=== PATIENT | male | born 1965 | race Caucasian/White ===

== ENCOUNTER 2017-04-14 08:59 | Inpatient (IN) | payer SELFPAY ==
[~2017-04-14] VITALS: Ht 182.9 cm; Wt 86.0 kg
[~2017-04-14 08:59] MED LIST: ASPI1TAB7 PO; BACT2OIN TOP; BACT800T5 PO; CEPH500C3 PO
[2017-04-14 09:03] VITALS: BP 168/109; PULSE 126; RESP 16; TEMP 99; O2SAT 94
[2017-04-14] MEDS ORDERED: PIPERACIL-TAZO 4.5 GM PREMIX 100 ML IV STA (09:16)
[2017-04-14] MEDS ORDERED: VANCOMYCIN INJ 1,000 MG in SODIUM CHLOR 0.9% 250 ML INJ 250 ML IV STA (09:16)
[2017-04-14] MEDS ORDERED: SODIUM CHLOR 0.9% 1000 ML INJ 1,000 ML IV ONE (09:30)
[2017-04-14] MEDS ORDERED: FLUMAZENIL 0.5 MG/5 ML VIAL IV PUSH PRN (09:30)
[2017-04-14] MEDS ORDERED: LORazepam 2 MG TAB PO PRN (09:30)
[2017-04-14] MEDS ORDERED: LORazepam 2 MG/ML VIAL IV PUSH PRN ×4 (09:30)
[2017-04-14] MEDS ORDERED: LORazepam 1 MG TAB PO PRN (09:30)
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
[2017-04-14 10:00] VITALS: BP 145/85; PULSE 110; RESP 16; TEMP 98.8; O2SAT 95
[2017-04-14 10:07] LABS: TOTAL BILIRUBIN ADULT 0.6 MG/DL (0.2-1.0)
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
[2017-04-14 11:23] LABS: BASOPHIL % 0.3 % (0.0-2.0); EOSINOPHIL % 0.4 % (0.0-4.0); HEMATOCRIT 42.2 % (39.0-51.0); HEMO FLAGS DIFF FINAL; LYMPH % 8.8 % (9.0-44.0); LYMPHOCYTE # 0.8 TH/MM3 (1.0-4.8); MONO % 13.8 % (0.0-8.0); NEUT % 76.7 % (16.0-70.0); PLATELET COUNT 172 TH/MM3 (150-450); RED BLOOD COUNT 4.22 MIL/MM3 (4.50-5.90); RED CELL DISTRIBUTION WIDTH 15.5 % (11.6-17.2); WHITE BLOOD COUNT 9.1 TH/MM3 (4.0-11.0)
[2017-04-14 11:40] LABS: LACTIC ACID GHOST NOT REPORTABLE
[2017-04-14 11:50] VITALS: BP 129/79; PULSE 98; RESP 15; O2SAT 94
[2017-04-14 11:59] LABS: ANION GAP 10 MEQ/L (5-15); BICARBONATE 27.2 MEQ/L (21.0-32.0); BLOOD UREA NITROGEN 4 MG/DL (7-18); CHLORIDE 103 MEQ/L (98-107); GLOMERULAR FILTRATION RATE 112 ML/MIN (>89); SODIUM (NA) 140 MEQ/L (136-145)
[2017-04-14 12:03] LABS: ALKALINE PHOSPHATASE 95 U/L (45-117); ALT (GPT) 78 U/L (12-78); AST (GOT) 69 U/L (15-37); POTASSIUM 4.1 MEQ/L (3.5-5.1)
[2017-04-14] MEDS ORDERED: LACTULOSE SYRUP 20 GM/30 ML CUP PO PRN (12:30)
[2017-04-14] MEDS ORDERED: ACETAMINOPHEN/HYDROcodone 325 MG/7.5 MG TAB PO PRN (12:30)
[2017-04-14] MEDS ORDERED: SODIUM CHLORIDE 0.9% FLUSH 10 ML FLUSH IV FLUSH PRN (12:30)
[2017-04-14] MEDS ORDERED: ONDANSETRON HCL 4 MG/2 ML VIAL IVP PRN (12:30)
[2017-04-14] MEDS ORDERED: NALOXONE HCL 0.4 MG/ML AMP IV PRN (12:30)
[2017-04-14] MEDS ORDERED: SENNOSIDES 8.6 MG TAB PO PRN (12:30)
[2017-04-14] MEDS ORDERED: ACETAMINOPHEN/HYDROcodone 325 MG/5 MG TAB PO PRN (12:30)
[2017-04-14] MEDS ORDERED: MAGNESIUM HYDROXIDE SUSP 30 ML CUP PO PRN (12:30)
[2017-04-14] MEDS ORDERED: BISACODYL 10 MG SUPP RECTAL PRN (12:30)
[2017-04-14] MEDS ORDERED: Vancomycin Consult Pharmacy 1 EA OTHER SCH (12:45)
[2017-04-14] MEDS: LACTOBACILLUS ACIDOPHILUS TAB PO SCH ×2 (14:19→17:44)
[2017-04-14] MEDS: SODIUM CHLOR 0.9% 1000 ML INJ 1,000 ML IV SCH ×2 (14:19→17:44)
--- NOTE | 2017-04-14 14:32 | EKG ---
Date Performed: 04/14/2017 Time Performed: 09:51:18 PTAGE: 51 years EKG: SINUS TACHYCARDIA ABNORMAL RHYTHM ECG NO SIGNIFICANT CHANGE FROM PRIOR ELECTROCARDIOGRAM. PREVIOUS TRACING : 11/24/2014 17.39 DOCTOR: Claudy Bettencourt Interpretating Date/Time 04/14/2017 14:30:52
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
[2017-04-14 16:24] VITALS: BP 133/69; PULSE 110; RESP 20; TEMP 99.4; O2SAT 97
[2017-04-14 20:00] VITALS: BP 155/89; PULSE 102; RESP 18; TEMP 97.3; O2SAT 96
[2017-04-14] MEDS ORDERED: VANCOMYCIN INJ 1,000 MG in SODIUM CHLOR 0.9% 250 ML INJ 250 ML IV SCH (21:00)
[2017-04-14] MEDS: DOCUSATE SODIUM 50 MG/SENNA 8.6 MG TAB PO SCH ×2 (21:00→21:23)
[2017-04-14] MEDS: SODIUM CHLORIDE 0.9% FLUSH 10 ML FLUSH IV FLUSH SCH (21:23)
[2017-04-14] MEDS: VANCOMYCIN INJ 1,500 MG in SODIUM CHLORID 0.9% 500 ML INJ 500 ML IV SCH (21:23)
[2017-04-15] VITALS (7 sets, daily range): BP systolic 139–156; BP diastolic 75–99; PULSE 71–86; RESP 16–18; TEMP 98–99; O2SAT 95–98
[2017-04-15 07:38] LABS: AUTOMATED NEUTROPHIL # 4.8 TH/MM3 (1.8-7.7); BASOPHIL % 0.3 % (0.0-2.0); EOSINOPHIL % 0.7 % (0.0-4.0); HEMATOCRIT 42.8 % (39.0-51.0); HEMO FLAGS DIFF FINAL; LYMPH % 13.9 % (9.0-44.0); MEAN CELL VOLUME 101.3 FL (80.0-100.0); MEAN CORPUSCULAR HEMOGLOBIN 33.7 PG (27.0-34.0); MEAN CORPUSCULAR HGB CONC 33.3 % (32.0-36.0); MONO % 14.9 % (0.0-8.0); NEUT % 70.2 % (16.0-70.0); PLATELET COUNT 131 TH/MM3 (150-450); RED BLOOD COUNT 4.23 MIL/MM3 (4.50-5.90); RED CELL DISTRIBUTION WIDTH 14.8 % (11.6-17.2); WHITE BLOOD COUNT 6.9 TH/MM3 (4.0-11.0)
[2017-04-15 07:47] LABS: BICARBONATE 24.9 MEQ/L (21.0-32.0); POTASSIUM 3.9 MEQ/L (3.5-5.1)
[2017-04-15] MEDS: DOCUSATE SODIUM 50 MG/SENNA 8.6 MG TAB PO SCH ×2 (09:00→21:00)
[2017-04-15] MEDS: SODIUM CHLORIDE 0.9% FLUSH 10 ML FLUSH IV FLUSH SCH ×2 (09:00→21:48)
[2017-04-15] MEDS: VANCOMYCIN INJ 1,500 MG in SODIUM CHLORID 0.9% 500 ML INJ 500 ML IV SCH ×2 (09:18→21:48)
[2017-04-15] MEDS: FOLIC ACID 1 MG TAB PO SCH (09:23)
[2017-04-15] MEDS: LACTOBACILLUS ACIDOPHILUS TAB PO SCH ×3 (09:23→17:49)
[2017-04-15] MEDS: THIAMINE HCL 100 MG TAB PO SCH (09:23)
--- NOTE | 2017-04-15 09:49 | HHI.PR ---
Subjective Remarks Withdrawals have intensified today. Current treatments or not holding his withdrawal symptoms. He reports diaphoresis all night and feeling hot and cold and having global tremors. We discussed Librium adjustment. His wounds are improving with antibiotics. Objective Vital Signs Date Time Temp Pulse Resp B/P Pulse Ox O2 Delivery O2 Flow Rate FiO2 04/15/17 08:00 98.6 86 18 146/87 98 04/15/17 05:30 98.0 83 18 139/87 98 04/15/17 03:12 98.5 71 18 147/77 95 04/14/17 20:00 97.3 102 18 155/89 96 04/14/17 16:24 99.4 110 20 133/69 97 04/14/17 11:50 98 15 129/79 94 04/14/17 10:00 98.8 110 16 145/85 95 Result Diagram: 04/15/17 0646 04/15/17 0646 Objective Remarks GENERAL: NAD, A&Ox3 HEAD: Normocephalic. NECK: Supple, trachea midline. No lymphadenopathy. EYES: No scleral icterus. No injection or drainage. CARDIOVASCULAR: Regular rate and rhythm without murmurs, gallops, or rubs. RESPIRATORY: Breath sounds equal bilaterally. No accessory muscle use. GASTROINTESTINAL: Abdomen soft, non-tender, nondistended. MUSCULOSKELETAL: No cyanosis, or edema. SKIN: Warm and dry. NEURO: No focal neurological deficitis. Global tremors and diaphoresis. A/P Problem List: (1) Alcoholism ICD Code: F10.20 (2) Tachycardia ICD Code: R00.0 (3) Cellulitis of left ankle ICD Code: L03.116 (4) Cellulitis of left elbow ICD Code: L03.114 (5) Delirium tremens ICD Code: F10.231 Assessment and Plan Assessment and plan 51-year-old male admitted secondary to cellulitis and with alcohol intoxication. Currently in Delirium tremens. Librium increased. Given patient drinks 24-52 beers per day his withdraws expected to be intense. Left ankle cellulitis Left elbow cellulitis Improving Continue Vancomycin Probiotics Follow for improvement Alcoholism Delirium tremens Baseline 2452 beers per day Intense withdrawal expected CIWA protocol Librium increased to 25 mg every 6 hours Thiamine Folic acid He will likely need a prolonged stay if he will remain for DTs treatment High risk for AMA Follow for seizure activity Schizophrenia PTSD Follow clinically No current exacerbation seen Consider psych consult if symptoms start DVT prophylaxis SCDs given seizure risk and bleeding risk Abel Pollard MD Apr 15, 2017 09:49
[2017-04-15] MEDS ORDERED: MISCELLANEOUS NURSING INFORMATION ONE (10:00)
[2017-04-15] MEDS: chlordiazePOXIDE 25 MG CAP PO SCH ×2 (12:00→17:50)
[2017-04-15] MEDS: SODIUM CHLOR 0.9% 1000 ML INJ 1,000 ML IV SCH (21:49)
[2017-04-16] MEDS: chlordiazePOXIDE 25 MG CAP PO SCH ×4 (00:37→17:24)
[2017-04-16 00:40] VITALS: BP 135/89; PULSE 85; RESP 18; TEMP 97.5; O2SAT 97
[2017-04-16 05:00] VITALS: BP 130/84; PULSE 80; RESP 19; TEMP 97; O2SAT 98
[2017-04-16] MEDS: SODIUM CHLOR 0.9% 1000 ML INJ 1,000 ML IV SCH (06:00)
[2017-04-16 07:00] VITALS: PULSE 67
[2017-04-16 08:00] VITALS: BP 120/77; PULSE 76; RESP 18; TEMP 97.5; O2SAT 99
[2017-04-16] MEDS: THIAMINE HCL 100 MG TAB PO SCH (09:26)
[2017-04-16] MEDS: FOLIC ACID 1 MG TAB PO SCH (09:26)
[2017-04-16] MEDS: LACTOBACILLUS ACIDOPHILUS TAB PO SCH ×3 (09:26→17:24)
[2017-04-16] MEDS ORDERED: PHARMACY ORDERED LAB ONE (09:45)
[2017-04-16] MEDS: VANCOMYCIN INJ 1,500 MG in SODIUM CHLORID 0.9% 500 ML INJ 500 ML IV SCH (10:24)
--- NOTE | 2017-04-16 10:33 | HHI.PR ---
Subjective Remarks Delirium tremens under better control today with increase in Librium to 25 mg by mouth every 6 hours. Patient has no significant tremors of his right arm. Wounds continued to heal with IV antibiotics. Objective Vital Signs Date Time Temp Pulse Resp B/P Pulse Ox O2 Delivery O2 Flow Rate FiO2 04/16/17 08:00 97.5 76 18 120/77 99 04/16/17 05:00 97.0 80 19 130/84 98 04/16/17 00:40 97.5 85 18 135/89 97 04/15/17 20:30 98.4 83 18 147/99 97 04/15/17 16:00 98.8 86 18 148/75 96 04/15/17 12:00 99.0 80 16 156/97 95 I/O 04/15/17 04/15/17 04/15/17 04/16/17 04/16/17 04/16/17 07:00 15:00 23:00 07:00 15:00 23:00 Intake Total 580 ml 600 ml 900 ml Balance 580 ml 600 ml 900 ml Intake Oral 580 ml 600 ml 900 ml # Voids 9 4 1 2 # Bowel Movements 2 1 0 0 Result Diagram: 04/15/1746 04/15/17 0646 Objective Remarks GENERAL: NAD, A&Ox3 HEAD: Normocephalic. NECK: Supple, trachea midline. No lymphadenopathy. EYES: No scleral icterus. No injection or drainage. CARDIOVASCULAR: Regular rate and rhythm without murmurs, gallops, or rubs. RESPIRATORY: Breath sounds equal bilaterally. No accessory muscle use. GASTROINTESTINAL: Abdomen soft, non-tender, nondistended. MUSCULOSKELETAL: No cyanosis, or edema. SKIN: Warm and dry. NEURO: No focal neurological deficitis. Global tremors and diaphoresis. A/P Problem List: (1) Alcoholism ICD Code: F10.20 (2) Tachycardia ICD Code: R00.0 (3) Cellulitis of left ankle ICD Code: L03.116 (4) Cellulitis of left elbow ICD Code: L03.114 (5) Delirium tremens ICD Code: F10.231 Assessment and Plan Assessment and plan 51-year-old male admitted secondary to cellulitis and with alcohol intoxication. Currently in Delirium tremens with control and Librium. Consider Librium wean in 1-2 days. Follow-up procedures. Continue to monitor infected wounds and cellulitis, thus far is having good response with vancomycin. Left ankle cellulitis Left elbow cellulitis Improving Continue Vancomycin Probiotics Follow for improvement Alcoholism Delirium tremens Baseline 2452 beers per day Intense withdrawal expected CIWA protocol Librium increased to 25 mg every 6 hours Thiamine Folic acid He will likely need a prolonged stay if he will remain for DTs treatment High risk for AMA Follow for seizure activity Schizophrenia PTSD Follow clinically No current exacerbation seen Consider psych consult if symptoms start DVT prophylaxis SCDs given seizure risk and bleeding risk Abel Pollard MD Apr 16, 2017 10:33
[2017-04-16 12:00] VITALS: BP 153/80; PULSE 82; RESP 16; TEMP 98; O2SAT 96
[2017-04-16 16:00] VITALS: BP 128/79; PULSE 72; RESP 18; TEMP 97.7; O2SAT 98
[2017-04-16] MEDS: SODIUM CHLORIDE 0.9% FLUSH 10 ML FLUSH IV FLUSH SCH (21:00)
[2017-04-16] MEDS: DOCUSATE SODIUM 50 MG/SENNA 8.6 MG TAB PO SCH (21:00)
[2017-04-16] MEDS: VANCOMYCIN INJ 1,750 MG in SODIUM CHLORID 0.9% 500 ML INJ 500 ML IV SCH (22:04)
[2017-04-17] VITALS (7 sets, daily range): BP systolic 113–132; BP diastolic 65–89; PULSE 51–76; RESP 16–19; TEMP 95.6–98.3; O2SAT 96–98
[2017-04-17] MEDS: chlordiazePOXIDE 25 MG CAP PO SCH ×5 (00:25→22:42)
[2017-04-17] MEDS: SODIUM CHLOR 0.9% 1000 ML INJ 1,000 ML IV SCH ×2 (02:00→10:25)
[2017-04-17] MEDS: DOCUSATE SODIUM 50 MG/SENNA 8.6 MG TAB PO SCH ×2 (09:00→22:43)
[2017-04-17] MEDS: SODIUM CHLORIDE 0.9% FLUSH 10 ML FLUSH IV FLUSH SCH ×2 (09:00→23:57)
[2017-04-17] MEDS: FOLIC ACID 1 MG TAB PO SCH (10:26)
[2017-04-17] MEDS: LACTOBACILLUS ACIDOPHILUS TAB PO SCH ×3 (10:26→16:54)
[2017-04-17] MEDS: THIAMINE HCL 100 MG TAB PO SCH (10:26)
[2017-04-17] MEDS: VANCOMYCIN INJ 1,750 MG in SODIUM CHLORID 0.9% 500 ML INJ 500 ML IV SCH ×2 (10:35→22:42)
--- NOTE | 2017-04-17 15:09 | HHI.PR ---
Subjective Remarks Mr. Cruz is a 51-year-old male who is admitted secondary to cellulitis and shortly thereafter entered delirium tremens. Patient is still having tremors and abdominal cramps secondary to withdrawal. Wounds are improving slowly the signs of infection or not yet resolved. Blood cultures are positive for MRSA, sensitive to Bactrim. Objective Vital Signs Date Time Temp Pulse Resp B/P Pulse Ox O2 Delivery O2 Flow Rate FiO2 04/17/17 12:00 98.1 72 16 113/75 98 04/17/17 08:32 96.2 51 17 123/83 98 04/17/17 05:40 98.0 67 19 120/65 97 04/17/17 04:03 74 04/17/17 00:50 97.1 76 18 129/69 96 04/16/17 16:00 97.7 72 18 128/79 98 I/O 04/16/17 04/16/17 04/16/17 04/17/17 04/17/17 04/17/17 07:00 15:00 23:00 07:00 15:00 23:00 Intake Total 900 ml 240 ml 1050 ml Balance 900 ml 240 ml 1050 ml Intake Oral 900 ml 240 ml 1050 ml # Voids 2 3 2 # Bowel Movements 0 1 0 Result Diagram: 04/15/17 0646 04/15/17 0646 Objective Remarks GENERAL: NAD, A&Ox3 HEAD: Normocephalic. NECK: Supple, trachea midline. No lymphadenopathy. EYES: No scleral icterus. No injection or drainage. CARDIOVASCULAR: Regular rate and rhythm without murmurs, gallops, or rubs. RESPIRATORY: Breath sounds equal bilaterally. No accessory muscle use. GASTROINTESTINAL: Abdomen soft, non-tender, nondistended. MUSCULOSKELETAL: No cyanosis, or edema. SKIN: Warm and dry. NEURO: No focal neurological deficitis. Global tremors and diaphoresis. A/P Problem List: (1) Alcoholism ICD Code: F10.20 (2) Tachycardia ICD Code: R00.0 (3) Cellulitis of left ankle ICD Code: L03.116 (4) Cellulitis of left elbow ICD Code: L03.114 (5) Delirium tremens ICD Code: F10.231 Assessment and Plan Assessment and plan 51-year-old male admitted secondary to cellulitis and with alcohol intoxication. Currently in Delirium tremens with control and Librium. Global tremor and abdominal symptoms persist. Consider Librium wean in 1-2 days. Follow-up procedures. Continue vancomycin. At discharge patient may be a candidate to use Bactrim. Left ankle cellulitis Left elbow cellulitis Improving Continue Vancomycin Probiotics Follow for improvement Alcoholism Delirium tremens Baseline 2452 beers per day Intense withdrawal expected CIWA protocol Librium increased to 25 mg every 6 hours Thiamine Folic acid He will likely need a prolonged stay if he will remain for DTs treatment High risk for AMA Follow for seizure activity Schizophrenia PTSD Follow clinically No current exacerbation seen Consider psych consult if symptoms start DVT prophylaxis SCDs given seizure risk and bleeding risk Discharge planning Continue to treat delirium tremens with weaning from Librium prior to discharge. Abel Pollard MD Apr 17, 2017 15:09
[2017-04-18] VITALS (8 sets, daily range): BP systolic 115–145; BP diastolic 65–83; PULSE 60–82; RESP 17–18; TEMP 96–98; O2SAT 97–99
[2017-04-18] MEDS: chlordiazePOXIDE 25 MG CAP PO SCH ×4 (05:23→20:47)
[2017-04-18] MEDS: SODIUM CHLOR 0.9% 1000 ML INJ 1,000 ML IV SCH ×2 (05:28→07:24)
[2017-04-18] MEDS: FOLIC ACID 1 MG TAB PO SCH (08:28)
[2017-04-18] MEDS: SODIUM CHLORIDE 0.9% FLUSH 10 ML FLUSH IV FLUSH SCH ×2 (08:28→20:47)
[2017-04-18] MEDS: LACTOBACILLUS ACIDOPHILUS TAB PO SCH ×3 (08:28→17:19)
[2017-04-18] MEDS: DOCUSATE SODIUM 50 MG/SENNA 8.6 MG TAB PO SCH ×2 (08:28→20:47)
[2017-04-18] MEDS: THIAMINE HCL 100 MG TAB PO SCH (08:28)
[2017-04-18] MEDS ORDERED: PHARMACY ORDERED LAB ONE (09:45)
[2017-04-18] MEDS: VANCOMYCIN INJ 1,750 MG in SODIUM CHLORID 0.9% 500 ML INJ 500 ML IV SCH (10:34)
[2017-04-18 10:54] LABS: VANCOMYCIN TROUGH 15.8 MCG/ML (5.0-10.0)
--- NOTE | 2017-04-18 18:19 | HHI.PR ---
Subjective Remarks Patient denies cp/sob states tremors are better denies hallucinations denies fevers/chills Objective Vitals Vital Signs Date Time Temp Pulse Resp B/P Pulse Ox O2 Delivery O2 Flow Rate FiO2 04/18/17 16:13 96.8 79 18 123/77 99 04/18/17 11:56 98.0 76 18 115/75 97 04/18/17 07:58 96.0 61 17 118/65 98 04/18/17 05:00 73 04/18/17 04:51 97.5 60 18 134/80 97 04/18/17 00:44 96.5 75 18 130/80 98 04/17/17 20:24 98.3 76 16 125/73 98 I/O 04/17/17 04/17/17 04/17/17 04/18/17 04/18/17 04/18/17 07:00 15:00 23:00 07:00 15:00 23:00 Intake Total 1050 ml 1350 ml 480 ml Balance 1050 ml 1350 ml 480 ml Intake Oral 1050 ml 480 ml IV Total 1350 ml # Voids 2 2 4 # Bowel Movements 0 0 1 Result Diagram: 04/15/17 0646 04/18/17 1007 Imaging Last Impressions Head CT 04/14/17915 Signed Impressions: Service Date/Time: Friday, April 14, 2017 10:10 - CONCLUSION: 1. Mild stable periventricular white matter small vessel ischemic changes or areas of demyelination. 2. No acute infarct, acute hemorrhage, mass effect or extra axial fluid collections. Osvaldo Garcia MD Chest X-Ray 04/14/17915 Signed Impressions: Service Date/Time: Friday, April 14, 2017 09:20 - CONCLUSION: No acute disease. Jaswant Martines MD FACR Objective Remarks GENERAL: NAD, A&Ox3 HEAD: Normocephalic. NECK: Supple, trachea midline. No lymphadenopathy. EYES: No scleral icterus. No injection or drainage. CARDIOVASCULAR: Regular rate and rhythm without murmurs, gallops, or rubs. RESPIRATORY: Breath sounds equal bilaterally. No accessory muscle use. GASTROINTESTINAL: Abdomen soft, non-tender, nondistended. MUSCULOSKELETAL: No cyanosis, or edema. SKIN: Warm and dry. NEURO: No focal neurological deficitis. Global tremors and diaphoresis. Medications and IVs Current Medications Medications (Trade) Dose Ordered Sig/Bill Route Start Time Stop Time Status Last Admin (Romazicon Inj) 0.2 mg Q1M PRN IV PUSH 04/14/17 09:30 (Ativan) 1 mg Q4H PRN PO 04/14/17 09:30 04/14/17 13:01 (Ativan Inj) 1 mg Q4H PRN IV PUSH 04/14/17 09:30 (Ativan) 2 mg Q2H PRN PO 04/14/17 09:30 (Ativan Inj) 2 mg Q2H PRN IV PUSH 04/14/17 09:30 (Ativan Inj) 2 mg Q1H PRN IV PUSH 04/14/17 09:30 (Ativan Inj) 2 mg Q15M PRN IV PUSH 04/14/17 09:30 (NS Flush) 2 ml UNSCH PRN IV FLUSH 04/14/17 12:30 (NS Flush) 2 ml BID IV FLUSH 04/14/17 21:00 04/18/17 08:28 (Zofran Inj) 4 mg Q6H PRN IVP 04/14/17 12:30 ([place] 5-325 Mg) 1 tab Q4H PRN PO 04/14/17 12:30 ([place] 7.5-325 Mg) 1 tab Q4H PRN PO 04/14/17 12:30 04/17/17 10:35 (Narcan Inj) 0.4 mg UNSCH PRN IV 04/14/17 12:30 (Anabelle-Colace) 1 tab BID PO 04/14/17 21:00 04/18/17 08:28 (Milk Of Magnesia Liq) 30 ml Q12H PRN PO 04/14/17 12:30 (Senokot) 17.2 mg Q12H PRN PO 04/14/17 12:30 (Dulcolax Supp) 10 mg DAILY PRN RECTAL 04/14/17 12:30 (Lactulose Liq) 30 ml DAILY PRN PO 04/14/17 12:30 (Vitamin B1) 100 mg DAILY PO 04/15/17 09:00 04/18/17 08:28 Folic Acid 1 mg 1 mg DAILY PO 04/15/17 09:00 04/18/17 08:28 (Vancomycin Consult Pharmacy) 0 ml @ 0 mls/hr UNSCH OTHER 04/14/17 12:45 (Lactinex) 1 tab TID PO 04/14/17 14:00 04/18/17 17:19 (Librium) 25 mg Q12HR PO 04/18/17 21:00 (Cleocin) 450 mg Q6HR PO 04/19/17 00:00 A/P Problem List: (1) Cellulitis of left elbow ICD Code: L03.114 Status: Acute (2) Cellulitis of left ankle ICD Code: L03.116 Status: Acute (3) Tachycardia ICD Code: R00.0 Status: Acute (4) Alcoholism ICD Code: F10.20 Status: Acute (5) Lactic acidosis ICD Code: E87.2 Status: Acute Assessment and Plan 51-year-old male admitted secondary to cellulitis and with alcohol intoxication. Currently in Delirium tremens with control and Librium. Global tremor and abdominal symptoms persist. Consider Librium wean in 1-2 days. Follow-up procedures. Continue vancomycin. At discharge patient may be a candidate to use Bactrim. Left ankle cellulitis Left elbow cellulitis Improving on IV Vancomycin Probiotics Follow for improvement 04/18 DC IV Vancomycin, start oral clindamycin x 14 days Alcoholism Delirium tremens Baseline 2452 beers per day Intense withdrawal expected CIWA protocol On Librium to 25 mg every 6 hours Thiamine Folic acid High risk for AMA Follow for seizure activity 04/18 no seizures, mild tremors, will taper Librium and decrease dose to every 12 hours Schizophrenia PTSD Follow clinically No current exacerbation seen Seems stable DVT prophylaxis SCDs given seizure risk and bleeding risk Discharge Planning Possible Dc in am once tapered off from Librium. Jake Corrales MD Apr 18, 2017 18:19
[2017-04-19] VITALS: BP 150/92; PULSE 74; RESP 18; TEMP 95.5; O2SAT 99
[2017-04-19] MEDS: CLINDAMYCIN 150 MG CAP PO SCH ×3 (00:54→11:40)
[2017-04-19 04:00] VITALS: BP 143/81; PULSE 81; RESP 20; TEMP 96.7; O2SAT 99
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
[2017-04-19 08:00] VITALS: BP 117/75; PULSE 59; PULSE 66; RESP 18; TEMP 96.1; O2SAT 99
[2017-04-19] MEDS: DOCUSATE SODIUM 50 MG/SENNA 8.6 MG TAB PO SCH (08:57)
[2017-04-19] MEDS: FOLIC ACID 1 MG TAB PO SCH (08:58)
[2017-04-19] MEDS: THIAMINE HCL 100 MG TAB PO SCH (08:58)
[2017-04-19] MEDS: LACTOBACILLUS ACIDOPHILUS TAB PO SCH ×2 (08:58→11:40)
[2017-04-19] MEDS: SODIUM CHLORIDE 0.9% FLUSH 10 ML FLUSH IV FLUSH SCH (08:58)
[2017-04-19] MEDS: chlordiazePOXIDE 25 MG CAP PO SCH (08:58)
[2017-04-19 11:15] LABS: AUTOMATED NEUTROPHIL # 5.2 TH/MM3 (1.8-7.7); BASOPHIL % 0.6 % (0.0-2.0); EOSINOPHIL # 0.1 TH/MM3 (0-0.4); EOSINOPHIL % 1.8 % (0.0-4.0); HEMATOCRIT 40.5 % (39.0-51.0); HEMO FLAGS DIFF FINAL; LYMPH % 14.2 % (9.0-44.0); MEAN CELL VOLUME 100.9 FL (80.0-100.0); MEAN CORPUSCULAR HEMOGLOBIN 33.2 PG (27.0-34.0); MEAN CORPUSCULAR HGB CONC 32.9 % (32.0-36.0); MONO % 10.6 % (0.0-8.0); NEUT % 72.8 % (16.0-70.0); PLATELET COUNT 212 TH/MM3 (150-450); RED BLOOD COUNT 4.02 MIL/MM3 (4.50-5.90); WHITE BLOOD COUNT 7.2 TH/MM3 (4.0-11.0)
[2017-04-19 11:44] LABS: ALT (GPT) 90 U/L (12-78); ANION GAP 7 MEQ/L (5-15); AST (GOT) 52 U/L (15-37); BICARBONATE 27.8 MEQ/L (21.0-32.0); BLOOD UREA NITROGEN 6 MG/DL (7-18); CHLORIDE 107 MEQ/L (98-107); GLOMERULAR FILTRATION RATE 112 ML/MIN (>89); POTASSIUM 3.7 MEQ/L (3.5-5.1); SODIUM (NA) 142 MEQ/L (136-145)
[2017-04-19 11:46] LABS: ALKALINE PHOSPHATASE 87 U/L (45-117); TOTAL BILIRUBIN ADULT 0.5 MG/DL (0.2-1.0)
[2017-04-19 12:00] VITALS: BP 139/82; PULSE 76; RESP 17; TEMP 97; O2SAT 96
[2017-04-19] MEDS ORDERED: GNP100TA3 PO (14:36)
[2017-04-19] MEDS ORDERED: FOLI1TAB6 PO (14:36)
[2017-04-19] MEDS ORDERED: CLIN1CAP6 PO (14:36)
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
== END 2017-04-19 15:24 | disposition home or self-care (01) | DRG 603 ==
LOC: NEPD 08:59 → INTOOBSV 12:32 → NEDA 12:32 → N05B 14:47 → OBSVTOIN 04-18 16:12
PROVIDERS: ADMIT Internal Medicine; ATTEND Internal Medicine
DX: L03.114 Cellulitis of left upper limb (principal); F10.231 Alcohol dependence with withdrawal delirium; E87.2 Acidosis; F20.9 Schizophrenia, unspecified; L03.116 Cellulitis of left lower limb; B95.62 Methicillin resistant Staphylococcus aureus infection as the cause of diseases classified elsewhere; Z91.14 Patient's other noncompliance with medication regimen; F43.10 Post-traumatic stress disorder, unspecified; Y90.7 Blood alcohol level of 200-239 mg/100 ml; S40.812D Abrasion of left upper arm, subsequent encounter; S80.812D Abrasion, left lower leg, subsequent encounter
CPT/HCPCS: 70450; 71010; 76937; 80048; 80053; 80202; 80307; 82565; 83605; 85025; 86403; 87040; 87070; 87077; 87147; 87186; 87205; 93005; 96365; 96368; J2543; J3370; J7030; J7040; J7050

== ENCOUNTER 2017-08-27 10:34 | Emergency (ER) | payer SELFPAY ==
[~2017-08-27] VITALS: Ht 182.9 cm; Wt 77.0 kg
[~2017-08-27 10:34] MED LIST changes: -ASPI1TAB7 PO; -BACT2OIN TOP; -BACT800T5 PO; -CEPH500C3 PO; +CLIN300C5 PO; +FOLI1TAB6 PO; +THIA100 PO
[2017-08-27 10:36] VITALS: BP 207/122; PULSE 55; RESP 14; TEMP 98.6; O2SAT 98
[2017-08-27 11:51] VITALS: BP 197/95; PULSE 102; RESP 18; O2SAT 99
[2017-08-27] MEDS ORDERED: IBUPROFEN 800 MG TAB PO ONE (12:15)
[2017-08-27] MEDS ORDERED: cloNIDine HCL 0.1 MG TAB PO ONE (12:15)
--- NOTE | 2017-08-27 12:45 | RADRPT ---
EXAM DATE/TIME: 08/27/2017 12:15 [facility] COMPARISON: No previous studies available for comparison. INDICATIONS : Pain and swelling left hand, thumb. stuck with a palmetto leaf MEDICAL HISTORY : Hypertension. Cardiovascular disease TIA, SURGICAL HISTORY : None. ENCOUNTER: Initial ACUITY: 4 - 6 days PAIN SCORE: 10/10 LOCATION: Left Hand FINDINGS: Three view examination of the left hand demonstrates diffuse soft tissue swelling about the distal as pect of the bone. Subjacent osseous structures are intact. No radiopaque foreign body. Also noted is a well-corticated spur or osteochondroma off the anterior distal metadiaphysis of the first metacarpa l. CONCLUSION: 1. Diffuse soft tissue swelling about the distal thumb. 2. Osseous structures are all intact. No radiopaque foreign body. 3. Benign-appearing spur or osteochondroma off the distal anterior metadiaphysis of the first metacar pal. . Richard Charlton MD on August 27, 2017 at 12:36 Board Certified Radiologist. This report was verified electronically.
[2017-08-27 12:49] VITALS: BP 177/91; PULSE 96; RESP 18; O2SAT 98
[2017-08-27] MEDS ORDERED: CEPH-460 PO (12:57)
[2017-08-27] MEDS ORDERED: BACT800T5 PO (12:57)
--- NOTE | 2017-08-27 13:00 | PD ---
HPI . Left thumb pain and swelling Chief Complaint: Injury Time Seen by Provider: 12:04 Travel History International Travel<30 days: No Contact w/Intl Traveler<30days: No Traveled to known affect area: No History of Present Illness HPI 52-year-old male presents emergency department for evaluation of left thumb pain and swelling. 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 When he grabbed hold of the palm tree there were thorns that stabbed him. Patient has multiple small stab markings on his right forearm that appear to be healing well with no signs or symptoms of infection. Patient's left thumb has no visible stab lu but is ecchymotic, erythematous and edematous. Patient denies any fever or chills. Patient states it is difficult to move his left thumb secondary to the swelling. The left thumb is neurovascularly intact at this time. PFSH Past Medical History Arthritis: No Autoimmune Disease: No Blood Disorders: No Bipolar Disorder: Yes Anxiety: Yes Depression: Yes Heart Rhythm Problems: No Cancer: Yes (liver- chemo) Cardiovascular Problems: Yes High Cholesterol: No Chemotherapy: Yes Chest Pain: No Cerebrovascular Accident: Yes (TIA 2013) Diabetes: No Diminished Hearing: No Endocrine: No Gastrointestinal Disorders: No GERD: No Genitourinary: No Headaches: No Hiatal Hernia: No Heparin Induced Thrombocytopen: No Hypertension: Yes Immune Disorder: No Implanted Vascular Access Dvce: No Musculoskeletal: No Neurologic: No (Patient states he has experienced TIA's in the past) Psychiatric: Yes Reproductive: No Respiratory: No Migraines: No Radiation Therapy: Yes Schizophrenia: Yes Seizures: No Sickle Cell Disease: No Thyroid Disease: No Ulcer: No Past Surgical History Abdominal Surgery: No AICD: No Arteriovenous Shunt: No Cardiac Surgery: No Ear Surgery: No Endocrine Surgery: No Eye Surgery: No Genitourinary Surgery: No Gynecologic Surgery: No Insulin Pump: No Joint Replacement: No Neurologic Surgery: No Oral Surgery: No Pacemaker: No Thoracic Surgery: No Other Surgery: Yes (LEFT FOREARM) Social History Alcohol Use: Yes (2/3 18 packs a day) Tobacco Use: Yes (1/2 PACK) Substance Use: Yes (cocaine, lsd, marijaunna 15 years ago) Allergies-Medications (Allergen,Severity, Reaction): Coded Allergies: *MDRO Multi-Drug Resistant Organism (Verified Adverse Reaction, Unknown, ) MRSA Elbow Wound 04/14/2017 Reported Meds & Prescriptions Reported Meds & Active Scripts Active Keflex (Cephalexin) 500 Mg Cap 500 Mg PO Q6H 10 Days Bactrim DS (Sulfamethoxazole-Trimethoprim) 800-160 Mg Tab 1 Tab PO BID 10 Days Clindamycin (Clindamycin HCl) 300 Mg Cap 300 Mg PO TID Gnp Vitamin B-1 (Thiamine HCl) 100 Mg Tab 100 Mg PO DAILY Folic Acid 1 Mg Tablet 1 Mg PO DAILY Review of Systems Except as stated in HPI: all other systems reviewed are Neg Physical Exam Narrative GENERAL: Well-nourished, well-developed 52-year-old male patient in no acute distress. Nontoxic appearing. SKIN: Distal portion of left thumb ecchymotic, edematous and erythematous. Small area of fluctuation noted on the lateral aspect of the distal portion of the left thumb. HEAD: Normocephalic. Atraumatic. EYES: No scleral icterus. No injection or drainage. NECK: Supple, trachea midline. No JVD or lymphadenopathy. CARDIOVASCULAR: Regular rate and rhythm without murmurs, gallops, or rubs. RESPIRATORY: Breath sounds equal bilaterally. No accessory muscle use. GASTROINTESTINAL: Abdomen soft, non-tender, nondistended. MUSCULOSKELETAL: Limited range of motion to the thumb secondary to edema. No obvious deformity or cyanosis. BACK: Nontender without obvious deformity. No CVA tenderness. Data Data Last Documented VS Vital Signs Date Time Temp Pulse Resp B/P (MAP) Pulse Ox O2 Delivery O2 Flow Rate FiO2 08/27/17 12:49 96 18 177/91 (119) 98 Room Air 08/27/17 10:36 98.6 Orders Orders Hand, Complete (Oev1ibx) (08/27/17 12:08) Ice/Cold Pack (08/27/17 12:08) Clonidine (Catapres) (08/27/17 12:15) Ibuprofen (Motrin) (08/27/17 12:15) Ed Discharge Order (08/27/17 13:00) Wound Culture And Gram Stain (08/27/17 13:34) [facility] Medical Decision Making Medical Screen Exam Complete: Yes Emergency Medical Condition: Yes Differential Diagnosis Differential diagnoses include but not limited to left thumb fracture, cellulitis, abscess Narrative Course 52-year-old male patient presents emergency department for evaluation of left thumb edema, erythema and ecchymosis that occurred 4 days ago when he grabbed a hold of a palm tree to prevent himself from falling out and was stabbed by a thorn. Ibuprofen ordered for pain and swelling. Patient hypertensive upon arrival and given 0.1 mg of clonidine by mouth. X-ray of the left hand ordered. Ice applied to left hand. X-ray of the left hand shows 1. Diffuse soft tissue swelling about the distal thumb. 2. Osseous structures are all intact. No radiopaque foreign body. 3. Benign-appearing spur or osteochondroma off the distal anterior metadiaphysis of the first metacarpal. All area of fluctuation approximately 0.5cm in diameter. I&D performed. Please see my procedural narrative. Patient will be given a prescription for Bactrim and Keflex for the infection in his left thumb and discharged home with rice instructions for the left hand. Patient instructed to return to the emergency Department with any worsening condition but otherwise take ibuprofen or Tylenol as needed for pain or fevers. Blood pressure slowly trending downward. Patient given instructions to follow-up with [facility]. Patient states he will follow up with [place] . Procedures Procedure Narrative INCISION AND DRAINAGE OF ABSCESS: The area was prepped and was sterilely draped. Ethyl chloride spray was used to anesthetize the area properly. A number 11 scalpel was used to make a 0.25cm incision across the area of the abscess. The abscess was drained, complex loculations were broken down, and irrigated with normal saline. Cultures were obtained. Sterile dressing applied. Patient advised to keep dressing clean and dry. Diagnosis Primary Impression: Cellulitis of thumb, left Referrals: [facility] Primary Care Physician Patient Instructions: Cellulitis (ED), General Instructions Additional Instructions: Please return to emergency department if your symptoms return or worsen. Follow up with your primary care provider. Take medications as prescribed. Rice therapy to left hand, rest, ice, elevate with resting. Keep wound clean and dry. Med/Other Pt SpecificInfo: Prescription(s) given Scripts Cephalexin (Keflex) 500 Mg Cap 500 MG PO Q6H for Infection for 10 Days, #40 CAP 0 Refills Prov: Marylou Crespo 08/27/17 Sulfamethoxazole-Trimethoprim (Bactrim DS) 800-160 Mg Tab 1 TAB PO BID for Infection for 10 Days, #20 TAB 0 Refills Prov: Marylou Crespo 08/27/17 Disposition: 01 DISCHARGE HOME Condition: Stable Marylou Crespo Aug 27, 2017 13:00
== END 2017-08-27 13:34 | disposition home or self-care (01) ==
LOC: NEPD 10:34
DX: L03.012 Cellulitis of left finger (principal); I10 Essential (primary) hypertension; F17.200 Nicotine dependence, unspecified, uncomplicated; Z86.59 Personal history of other mental and behavioral disorders; Z85.05 Personal history of malignant neoplasm of liver; Z86.79 Personal history of other diseases of the circulatory system; X58.XXXA Exposure to other specified factors, initial encounter; Y93.H2 Activity, gardening and landscaping; Y99.0 Civilian activity done for income or pay
CPT/HCPCS: 10060; 73130

== ENCOUNTER 2017-08-28 11:58 | Inpatient (IN) | payer SELFPAY ==
[~2017-08-28] VITALS: Ht 182.9 cm; Wt 75.3 kg
[~2017-08-28 11:58] MED LIST changes: +BACT800T5 PO; +CEPH-460 PO
[2017-08-28] MEDS ORDERED: DEXAMETHASONE SOD PHOS 4 MG/ML VIAL IV ONE (12:00)
[2017-08-28] MEDS ORDERED: PROPOFOL 200 MG/20 ML AMP IV ONE (12:00)
[2017-08-28] MEDS ORDERED: LIDOCAINE HCL 1% PF 5 ML AMPULE OTHER ONE (12:00)
[2017-08-28] MEDS ORDERED: ONDANSETRON HCL 4 MG/2 ML VIAL IV PUSH ONE (12:00)
[2017-08-28 12:02] VITALS: BP 176/102; PULSE 116; RESP 20; TEMP 100.6; O2SAT 99
[2017-08-28 12:36] LABS: AUTOMATED NEUTROPHIL # 10.7 TH/MM3 (1.8-7.7); BASOPHIL % 0.2 % (0.0-2.0); HEMATOCRIT 43.7 % (39.0-51.0); HEMO FLAGS DIFF FINAL; LYMPH % 6.3 % (9.0-44.0); LYMPHOCYTE # 0.8 TH/MM3 (1.0-4.8); MEAN CELL VOLUME 94.4 FL (80.0-100.0); MEAN CORPUSCULAR HEMOGLOBIN 33.1 PG (27.0-34.0); NEUT % 82.5 % (16.0-70.0); PLATELET COUNT 206 TH/MM3 (150-450); RED BLOOD COUNT 4.63 MIL/MM3 (4.50-5.90); RED CELL DISTRIBUTION WIDTH 13.1 % (11.6-17.2); WHITE BLOOD COUNT 12.9 TH/MM3 (4.0-11.0)
[2017-08-28] MEDS ORDERED: VANCOMYCIN INJ 1,000 MG in SODIUM CHLOR 0.9% 250 ML INJ 250 ML IV ONE (12:45)
[2017-08-28] MEDS ORDERED: CLINDAMYCIN 600 MG PREMIX 50 ML IV ONE (12:45)
[2017-08-28] MEDS ORDERED: SODIUM CHLOR 0.9% 1000 ML INJ 1,000 ML IV ONE ×2 (12:45)
[2017-08-28] MEDS ORDERED: ACETAMINOPHEN 325 MG TAB PO ONE (12:45)
--- NOTE | 2017-08-28 12:47 | PD ---
HPI Chief Complaint: Skin Problem Time Seen by Provider: 12:27 Travel History International Travel<30 days: No Contact w/Intl Traveler<30days: No Traveled to known affect area: No History of Present Illness HPI The patient is a 52-year-old male who presents to the emergency department for increasing infection to the left thumb. The patient states that he received a puncture wound by a thorn from a palm tree last Monday. The patient was seen in the emergency department yesterday where he had an incision and drainage of the left thumb. The patient states there was drainage, states when it opened up the drainage went across the rim. He is unsure of a culture was obtained. He was prescribed antibiotics, however, did not get the antibiotics filled until this morning. The patient does complain of subjective fevers at home, intermittent chills, and increasing pain and swelling to the left thumb. He now notes her some redness spreading up the medial aspect of the left arm into the left axilla. He does have a history of alcohol use daily , 4-5 beers daily. He does smoke tobacco. He denies any known history of HIV or diabetes. He does not currently have a primary physician. Symptoms are moderate, exacerbated after a thorn stuck him in the left thumb, and there are no current alleviating factors. PFSH Past Medical History Arthritis: No Autoimmune Disease: No Blood Disorders: No Bipolar Disorder: Yes Anxiety: Yes Depression: Yes Heart Rhythm Problems: No Cancer: Yes (liver- chemo) Cardiovascular Problems: Yes High Cholesterol: No Chemotherapy: Yes Chest Pain: No Cerebrovascular Accident: Yes (TIA 2013) Diabetes: No Diminished Hearing: No Endocrine: No Gastrointestinal Disorders: No GERD: No Genitourinary: No Headaches: No Hiatal Hernia: No Heparin Induced Thrombocytopen: No Hypertension: Yes Immune Disorder: No Implanted Vascular Access Dvce: No Musculoskeletal: No Neurologic: No (Patient states he has experienced TIA's in the past) Psychiatric: Yes Reproductive: No Respiratory: No Migraines: No Radiation Therapy: Yes Schizophrenia: Yes Seizures: No Sickle Cell Disease: No Thyroid Disease: No Ulcer: No Past Surgical History Abdominal Surgery: No AICD: No Arteriovenous Shunt: No Cardiac Surgery: No Ear Surgery: No Endocrine Surgery: No Eye Surgery: No Genitourinary Surgery: No Gynecologic Surgery: No Insulin Pump: No Joint Replacement: No Neurologic Surgery: No Oral Surgery: No Pacemaker: No Thoracic Surgery: No Other Surgery: Yes (LEFT FOREARM) Social History Alcohol Use: Yes (2/3 18 packs a day) Tobacco Use: Yes (1/2 PACK) Substance Use: Yes (cocaine, lsd, marijaunna 15 years ago) Allergies-Medications (Allergen,Severity, Reaction): Coded Allergies: *MDRO Multi-Drug Resistant Organism (Verified Adverse Reaction, Unknown, ) MRSA Elbow Wound 04/14/2017 Reported Meds & Prescriptions Reported Meds & Active Scripts Active Keflex (Cephalexin) 500 Mg Cap 500 Mg PO Q6H 10 Days Bactrim DS (Sulfamethoxazole-Trimethoprim) 800-160 Mg Tab 1 Tab PO BID 10 Days Clindamycin (Clindamycin HCl) 300 Mg Cap 300 Mg PO TID Gnp Vitamin B-1 (Thiamine HCl) 100 Mg Tab 100 Mg PO DAILY Folic Acid 1 Mg Tablet 1 Mg PO DAILY Review of Systems Except as stated in HPI: all other systems reviewed are Neg General / Constitutional: Positive: Fever, Chills Cardiovascular: No: Chest Pain or Discomfort Respiratory: No: Shortness of Breath Gastrointestinal: No: Nausea, Vomiting, Abdominal Pain Musculoskeletal: Positive: Edema, Pain Skin: Positive Other (as noted in the history of present illness) Psychiatric: Positive: Substance Abuse (daily alcohol use) Physical Exam Narrative GENERAL: Awake, alert, pleasant 52-year-old male who appears his stated age and is in no acute respiratory distress. SKIN: Focused skin assessment warm/dry. Sunburn over the face. HEAD: Atraumatic. Normocephalic. EYES: Pupils equal and round. No scleral icterus. No injection or drainage. ENT: No nasal bleeding or discharge. Mucous membranes pink and moist. NECK: Trachea midline. No JVD. CARDIOVASCULAR: Regular, tachycardic with a heart rate of 115. RESPIRATORY: No accessory muscle use. Clear to auscultation. Breath sounds equal bilaterally. GASTROINTESTINAL: Abdomen soft, non-tender, nondistended. MUSCULOSKELETAL: The left thumb is swollen and edematous. Soft tissue swelling is noted with some discoloration and bluish to pale color skin over the radial and proximal aspect of the left thumb. There is lymphadenitis with a red streak going up the proximal aspect of the forearm over the volar side, over the medial aspect left forearm and into the left axilla. Positive left epitrochlear lymphadenopathy. NEUROLOGICAL: Awake and alert. No obvious cranial nerve deficits. Motor grossly within normal limits. Normal speech. Nonfocal. PSYCHIATRIC: Appropriate mood and affect; insight and judgment normal. Data Data Last Documented VS Vital Signs Date Time Temp Pulse Resp B/P (MAP) Pulse Ox O2 Delivery O2 Flow Rate FiO2 08/28/17 12:02 100.6 116 20 176/102 (126) 99 Orders Orders Sepsis Workup Initiated (08/28/17 ) Complete Blood Count With Diff (08/28/17 12:09) Comprehensive Metabolic Panel (08/28/17 12:09) Lactic Acid Sepsis Protocol (08/28/17 12:09) Blood Culture (08/28/17 12:09) Acetaminophen (Tylenol) (08/28/17 12:45) Sodium Chlor 0.9% 1000 Ml Inj (Ns 1000 M (08/28/17 12:45) Sodium Chlor 0.9% 1000 Ml Inj (Ns 1000 M (08/28/17 12:45) Clindamycin 600 Mg Premix (Cleocin 600 M (08/28/17 12:45) Vancomycin Inj (Vancomycin Inj) (08/28/17 12:45) Consult Hand Surgery (08/28/17 ) Consent (08/28/17 13:04) [employer] Request For Service (08/28/17 13:04) Admit To Inpatient (08/28/17 ) Vital Signs (Adult) Q4H (08/28/17 13:23) Activity Oob With Assistance (08/28/17 13:23) Electrical High Tension Tester / Telemetry .CONTINUOUS (08/28/17 13:23) Diet Npo (08/28/17 Lunch) Sodium Chlor 0.9% 1000 Ml Inj (Ns 1000 M (08/28/17 13:23) Sodium Chloride 0.9% Flush (Ns Flush) (08/28/17 13:30) Sodium Chloride 0.9% Flush (Ns Flush) (08/28/17 21:00) Basic Metabolic Panel (Bmp) (08/29/17 06:00) Complete Blood Count With Diff (08/29/17 06:00) Case Management Consult (08/28/17 13:23) Naloxone Inj (Narcan Inj) (08/28/17 13:30) Inpatient Certification (08/28/17 ) Vancomycin Consult Pharmacy (Vancomycin (08/28/17 13:30) Piperacil-Tazo 4.5 Gm Premix (Zosyn 4.5 (08/28/17 13:30) Flumazenil Inj (Romazicon Inj) (08/28/17 13:30) Lorazepam (Ativan) (08/28/17 13:30) Lorazepam Inj (Ativan Inj) (08/28/17 13:30) Lorazepam (Ativan) (08/28/17 13:30) Lorazepam Inj (Ativan Inj) (08/28/17 13:30) Lorazepam Inj (Ativan Inj) (08/28/17 13:30) Lorazepam Inj (Ativan Inj) (08/28/17 13:30) ^ Seizure Precautions (08/28/17 13:25) ^ Etoh Withdrawal Precautions (08/28/17 13:25) Chlordiazepoxide (Librium) (08/29/17 09:00) (Hub Use Only)Inp Phy Cons/Ref (08/28/17 ) Admit Order (Ed Use Only) (08/28/17 13:31) Labs Laboratory Tests Test 08/28/17 12:20 White Blood Count 12.9 TH/MM3 Red Blood Count 4.63 MIL/MM3 Hemoglobin 15.3 GM/DL Hematocrit 43.7 % Mean Corpuscular Volume 94.4 FL Mean Corpuscular Hemoglobin 33.1 PG Mean Corpuscular Hemoglobin Concent 35.0 % Red Cell Distribution Width 13.1 % Platelet Count 206 TH/MM3 Mean Platelet Volume 8.6 FL Neutrophils (%) (Auto) 82.5 % Lymphocytes (%) (Auto) 6.3 % Monocytes (%) (Auto) 11.0 % Eosinophils (%) (Auto) 0.0 % Basophils (%) (Auto) 0.2 % Neutrophils # (Auto) 10.7 TH/MM3 Lymphocytes # (Auto) 0.8 TH/MM3 Monocytes # (Auto) 1.4 TH/MM3 Eosinophils # (Auto) 0.0 TH/MM3 Basophils # (Auto) 0.0 TH/MM3 CBC Comment DIFF FINAL Differential Comment Blood Urea Nitrogen 6 MG/DL Creatinine 0.68 MG/DL Random Glucose 98 MG/DL Total Protein 8.0 GM/DL Albumin 3.5 GM/DL Calcium Level 8.9 MG/DL Alkaline Phosphatase 84 U/L Aspartate Amino Transf (AST/SGOT) 18 U/L Alanine Aminotransferase (ALT/SGPT) 21 U/L Total Bilirubin 0.9 MG/DL Sodium Level 131 MEQ/L Potassium Level 3.7 MEQ/L Chloride Level 97 MEQ/L Carbon Dioxide Level 23.9 MEQ/L Anion Gap 10 MEQ/L Estimat Glomerular Filtration Rate 122 ML/MIN Lactic Acid Level 1.1 mmol/L [facility] Medical Decision Making Medical Screen Exam Complete: Yes Emergency Medical Condition: Yes Medical Record Reviewed: Yes Interpretation(s) Laboratory Tests Test 08/28/17 12:20 White Blood Count 12.9 TH/MM3 Red Blood Count 4.63 MIL/MM3 Hemoglobin 15.3 GM/DL Hematocrit 43.7 % Mean Corpuscular Volume 94.4 FL Mean Corpuscular Hemoglobin 33.1 PG Mean Corpuscular Hemoglobin Concent 35.0 % Red Cell Distribution Width 13.1 % Platelet Count 206 TH/MM3 Mean Platelet Volume 8.6 FL Neutrophils (%) (Auto) 82.5 % Lymphocytes (%) (Auto) 6.3 % Monocytes (%) (Auto) 11.0 % Eosinophils (%) (Auto) 0.0 % Basophils (%) (Auto) 0.2 % Neutrophils # (Auto) 10.7 TH/MM3 Lymphocytes # (Auto) 0.8 TH/MM3 Monocytes # (Auto) 1.4 TH/MM3 Eosinophils # (Auto) 0.0 TH/MM3 Basophils # (Auto) 0.0 TH/MM3 CBC Comment DIFF FINAL Differential Comment Blood Urea Nitrogen 6 MG/DL Creatinine 0.68 MG/DL Random Glucose 98 MG/DL Total Protein 8.0 GM/DL Albumin 3.5 GM/DL Calcium Level 8.9 MG/DL Alkaline Phosphatase 84 U/L Aspartate Amino Transf (AST/SGOT) 18 U/L Alanine Aminotransferase (ALT/SGPT) 21 U/L Total Bilirubin 0.9 MG/DL Sodium Level 131 MEQ/L Potassium Level 3.7 MEQ/L Chloride Level 97 MEQ/L Carbon Dioxide Level 23.9 MEQ/L Anion Gap 10 MEQ/L Estimat Glomerular Filtration Rate 122 ML/MIN Lactic Acid Level 1.1 mmol/L Differential Diagnosis Differential diagnosis includes infected wound, cellulitis, abscess, lymphadenitis, lymphangitis, sepsis. Narrative Course IV was established, labs are drawn and sent, and the patient was placed on cardiac telemetry monitoring and continuous pulse oximetry monitoring. Blood cultures and lactic acid were sent to lab. The patient was administered clindamycin and vancomycin. I reviewed the EMR, he had an x-ray performed yesterday that was negative for foreign body. I discussed the patient with the on-call hand surgeon, Dr. Martinez, who will evaluate the patient in the emergency department. The patient will be kept nothing by mouth. The patient was evaluated by Dr. Dunn in the emergency department, he will take the patient to the operating room later today. The patient will be kept nothing by mouth. A call was placed to the on-call medical service for admission. Sepsis Criteria SIRS Criteria (2 or more): Heart rate over 90, WBC > 46573, < 4000 or > 10% bands Physician Communication Physician Communication A call was placed to the on-call medical service for admission. I discussed the patient with Dr. Castillo who agrees with admission. Diagnosis Primary Impression: Cellulitis of thumb, left Additional Impressions: Lymphangitis Sepsis Qualified Codes: A41.9 - Sepsis, unspecified organism Admitting Information Admitting Physician Requests: Admit Condition: Stable Nasir Thomas MD Aug 28, 2017 12:47
[2017-08-28 13:28] LABS: BLOOD UREA NITROGEN 6 MG/DL (7-18); GLOMERULAR FILTRATION RATE 122 ML/MIN (>89)
[2017-08-28 13:29] LABS: ALKALINE PHOSPHATASE 84 U/L (45-117); ALT (GPT) 21 U/L (12-78); ANION GAP 10 MEQ/L (5-15); AST (GOT) 18 U/L (15-37); BICARBONATE 23.9 MEQ/L (21.0-32.0); CHLORIDE 97 MEQ/L (98-107); POTASSIUM 3.7 MEQ/L (3.5-5.1); SODIUM (NA) 131 MEQ/L (136-145); TOTAL BILIRUBIN ADULT 0.9 MG/DL (0.2-1.0)
[2017-08-28] MEDS ORDERED: SODIUM CHLORIDE 0.9% FLUSH 10 ML FLUSH IV FLUSH PRN (13:30)
[2017-08-28] MEDS ORDERED: LORazepam 2 MG TAB PO PRN (13:30)
[2017-08-28] MEDS ORDERED: NALOXONE HCL 0.4 MG/ML AMP IV PUSH PRN (13:30)
[2017-08-28] MEDS ORDERED: LORazepam 1 MG TAB PO PRN (13:30)
[2017-08-28] MEDS ORDERED: Vancomycin Consult Pharmacy 1 EA OTHER SCH (13:30)
[2017-08-28] MEDS ORDERED: LORazepam 2 MG/ML VIAL IV PUSH PRN ×4 (13:30)
[2017-08-28] MEDS ORDERED: FLUMAZENIL 0.5 MG/5 ML VIAL IV PUSH PRN (13:30)
--- NOTE | 2017-08-28 13:53 | HHI.HP ---
HPI Service [facility] Primary Care Physician No Primary Care Physician Admission Diagnosis left thumb cellulitis with lymphangitis, sepsis Diagnoses: Travel History International Travel<30 Days: No Contact w/Intl Traveler <30 Da: No Traveled to Known Affected Are: No History of Present Illness last monday was cutting tree, and safety harness broke so tried to hang on the palm tree as he was desceding and the palm tree hit several places on his bilateral arm left thumb got the worse and swelling started slowly came yesterday to er, got i+D and got worse now woke up tracking up the left arm fever antibiotics not started because he only went to [facility] nurse today and was told to come to er since it was lanced here, has been draining not diabetic but a a smoker left UE have 2 plates inside from prior injury - 1986 not on any immunsuppressants denies any other symptoms nausea/ vomtign/ etc Review of Systems Except as stated in HPI: all other systems reviewed are Neg Past Family Social History Past Medical History minor stroke- 4 years ago chronic smoker Past Surgical History left arm sx with plates and screws Reported Medications no meds at home Allergies: Coded Allergies: *MDRO Multi-Drug Resistant Organism (Verified Adverse Reaction, Unknown, ) MRSA Elbow Wound 04/14/2017 Social History a pack a day >20yrs drinks etoh 4 beers a day no drugs ; about 20yrs ago, used to use everything- but NO IV drugs Physical Exam Vital Signs Vital Signs Date Time Temp Pulse Resp B/P (MAP) Pulse Ox O2 Delivery O2 Flow Rate FiO2 08/28/17 12:02 100.6 116 20 176/102 (126) 99 Physical Exam GENERAL: This is a well-nourished, well-developed patient, in no apparent distress. SKIN: No rashes, ecchymoses or lesions. Cool and dry. HEAD: Atraumatic. Normocephalic. No temporal or scalp tenderness. EYES: Pupils equal round and reactive. Extraocular motions intact. No scleral icterus. No injection or drainage. ENT: Nose without bleeding, purulent drainage or septal hematoma. Throat without erythema, tonsillar hypertrophy or exudate. Uvula midline. Airway patent. NECK: Trachea midline. No JVD or lymphadenopathy. Supple, nontender, no meningeal signs. CARDIOVASCULAR: Regular rate and rhythm without murmurs, gallops, or rubs. RESPIRATORY: Clear to auscultation. Breath sounds equal bilaterally. No wheezes , rales, or rhonchi. GASTROINTESTINAL: Abdomen soft, non-tender, nondistended. No hepato-splenomegaly , or palpable masses. No guarding. MUSCULOSKELETAL: Extremities without clubbing, cyanosis. left thumb with swelling, pus, limited range of motion. LEFT arm streaking up with erythema, palpable lymph nodes NEUROLOGICAL: Awake and alert. Cranial nerves II through XII intact. Motor and sensory grossly within normal limits. Five out of 5 muscle strength in all muscle groups. Normal speech. Laboratory Laboratory Tests Test 08/28/17 12:20 White Blood Count 12.9 Red Blood Count 4.63 Hemoglobin 15.3 Hematocrit 43.7 Mean Corpuscular Volume 94.4 Mean Corpuscular Hemoglobin 33.1 Mean Corpuscular Hemoglobin Concent 35.0 Red Cell Distribution Width 13.1 Platelet Count 206 Mean Platelet Volume 8.6 Neutrophils (%) (Auto) 82.5 Lymphocytes (%) (Auto) 6.3 Monocytes (%) (Auto) 11.0 Eosinophils (%) (Auto) 0.0 Basophils (%) (Auto) 0.2 Neutrophils # (Auto) 10.7 Lymphocytes # (Auto) 0.8 Monocytes # (Auto) 1.4 Eosinophils # (Auto) 0.0 Basophils # (Auto) 0.0 CBC Comment DIFF FINAL Differential Comment Blood Urea Nitrogen 6 Creatinine 0.68 Random Glucose 98 Total Protein 8.0 Albumin 3.5 Calcium Level 8.9 Alkaline Phosphatase 84 Aspartate Amino Transf (AST/SGOT) 18 Alanine Aminotransferase (ALT/SGPT) 21 Total Bilirubin 0.9 Sodium Level 131 Potassium Level 3.7 Chloride Level 97 Carbon Dioxide Level 23.9 Anion Gap 10 Estimat Glomerular Filtration Rate 122 Lactic Acid Level 1.1 Date/Time Source Procedure Growth Status 08/28/17 12:20 Blood Peripheral Aerobic Blood Culture Pending Received 08/28/17 12:20 Blood Peripheral Anaerobic Blood Culture Pending Received Result Diagram: 08/28/17 1220 08/28/17 1220 Caprini VTE Risk Assessment Caprini Risk Assessment Model Point Value = 1 Point Value = 2 Point Value = 3 Point Value = 5 Age 41-60 Minor surgery BMI > 25 kg/m2 Swollen legs Varicose veins or History of unexplained or recurrent spontaneous Oral contraceptives or hormone replacement Sepsis (< 1 month) Serious lung disease, including pneumonia (< 1 month) Abnormal pulmonary function Acute myocardial infarction Congestive heart failure (< 1 month) History of inflammatory bowel disease Medical patient at bed rest Age 61-74 Arthroscopic surgery Major open surgery (> 45 min) Laparoscopic surgery (> 45 min) Malignancy Confined to bed (> 72 hours) Immobilizing plaster cast Central venous access Age >= 75 History of VTE Family history of VTE Factor V Leiden Prothrombin [id number] Lupus anticoagulant Anticardiolipin antibodies Elevated serum homocysteine Heparin-induced thrombocytopenia Other congenital or acquired thrombophilia Stroke (< 1 month) Elective arthroplasty Hip, pelvis, or leg fracture Acute spinal cord injury (< 1 month) Prophylaxis Regimen Total Risk Factor Score Risk Level Prophylaxis Regimen 0-1 Low Early ambulation 2 Moderate Order ONE of the following: *Sequential Compression Device (SCD) *Heparin 5000 units SQ BID 3-4 Higher Order ONE of the following medications: *Heparin 5000 units SQ TID *Enoxaparin/Lovenox 40 mg SQ daily (WT < 150 kg, CrCl > 30 mL/min) *Enoxaparin/Lovenox 30 mg SQ daily (WT < 150 kg, CrCl > 10-29 mL/min) *Enoxaparin/Lovenox 30 mg SQ BID (WT < 150 kg, CrCl > 30 mL/min) AND/OR *Sequential Compression Device (SCD) 5 or more Highest Order ONE of the following medications: *Heparin 5000 units SQ TID (Preferred with Epidurals) *Enoxaparin/Lovenox 40 mg SQ daily (WT < 150 kg, CrCl > 30 mL/min) *Enoxaparin/Lovenox 30 mg SQ daily (WT < 150 kg, CrCl > 10-29 mL/min) *Enoxaparin/Lovenox 30 mg SQ BID (WT < 150 kg, CrCl > 30 mL/min) AND *Sequential Compression Device (SCD) Physician Certification Order for Inpatient Services The services are ordered in accordance with Medicare regulations or non- Medicare payer requirements, as applicable. In the case of services not specified as inpatient-only, they are appropriately provided as inpatient services in accordance with the 2-midnight benchmark. days is the estimated time the patient will need to remain in the hospital, assuming treatment plan goals are met and no additional complications. Aditi Castillo MD Aug 28, 2017 13:53
[2017-08-28] MEDS ORDERED: SODIUM CHLOR 0.9% 1000 ML INJ 1,000 ML IV SCH (14:00)
--- NOTE | 2017-08-28 14:08 | MB ---
cc: PHANI ELENA III, M.D. DATE OF CONSULTATION: 08/28/2017 HISTORY OF PRESENT ILLNESS The patient is a 52-year-old male who has an infection in his left thumb. Five days ago he fell from a tree while at work and got puncture with thorns from a palm tree in his left thumb and right forearm. He was seen in the emergency room yesterday where he had a very limited incision and drainage in the thumb and returned today. He states that he has redness and swelling and pain up his entire arm. He did not get the antibiotics filled until this morning. PAST MEDICAL HISTORY High blood pressure. He denies any other medical problems, but there are numerous others listed in the computer. PAST SURGICAL HISTORY Left forearm infection. SOCIAL HISTORY Smokes a half pack a day. ALLERGIES No known drug allergies. MEDICATIONS 1. Keflex. 2. Bactrim. 3. Clindamycin. REVIEW OF SYSTEMS The patient is not complaining of any headaches, blurry or double vision. He is not complaining of any coughing, wheezing or shortness breath. He is not complaining of any chest pain or palpitations. He is not complaining of night sweats or chills, but is complaining of fevers. He is not complaining of any burning, frequency or urgency with urination. He is not complaining of any spine, neck or back pain. He is not complaining of any anxiety, depression or suicidal ideations. IMAGING X-rays were performed yesterday of the left thumb and these reveal diffuse soft tissue about the distal thumb and osseous structures all intact. A benign-appearing spur or osteochondroma off the distal anterior metadiaphysis of the first metacarpal. LABORATORY Laboratory studies were performed. The white blood cell count is 12,900, platelet count 206,000. Chemistries are pending. PHYSICAL EXAMINATION GENERAL: Well-developed, well-nourished, no apparent distress, awake, alert and oriented x3, very pleasant, sitting up in his bed in the emergency room. VITAL SIGNS: Temperature 100.6, heart rate 116, respiratory rate 20, blood pressure 176/102. LEFT UPPER EXTREMITY: Examination reveals an obviously infected left thumb with serous drainage from a puncture wound from the I&D. It is boggy. It is tender to palpation. All musculotendinous units appear to be intact. There is obvious lymphangitic streaking up to his axilla and are palpable. lymph nodes. IMPRESSION Left thumb infection with ascending lymphangitis. PLAN The plan is to go to the operating room for debridement. It does not look like pyoderma gangrenosum, but it does look like he has an active infection so decompression is needed as he has fluctuance in the thumb. Preoperatively he has been n.p.o. really since last night. We will go as soon as the operating room allows us. MD SAMUEL Monteiro III/CE /1:33 PM /1:52 PM
[2017-08-28] MEDS: PIPERACIL-TAZO 4.5 GM PREMIX 100 ML IV SCH (14:46)
[2017-08-28] MEDS ORDERED: LIDOCAINE HCL 2% 50 ML VIAL ONE (15:16)
[2017-08-28] MEDS ORDERED: BUPIVACAINE HCL PF 0.5% 30 ML VIAL ONE (15:16)
[2017-08-28] MEDS ORDERED: NEOMYCIN/POLYMYXIN 1 ML G.U. IRRIGANT ONE (15:20)
[2017-08-28 15:30] VITALS: BP 174/95; PULSE 103; RESP 19; TEMP 101.4; O2SAT 99
[2017-08-28] MEDS ORDERED: HYDROmorphone HCL PF 2 MG/ML VIAL ONE (17:27)
[2017-08-28] MEDS ORDERED: DO NOT ADM ANY ANTICOAGULANT DRUGS PRN (18:04)
[2017-08-28] MEDS ORDERED: *MEPERIDINE 25 MG INJ VIAL PERIprocedural Use ONLY ONE (18:05)
[2017-08-28] MEDS ORDERED: ACETAMINOPHEN 1000 MG/100 ML 100 ML IV ONE ×2 (18:05→18:21)
[2017-08-28] MEDS ORDERED: NEOMYCIN/POLYMYXIN 1 ML G.U. IRRIGANT IRRIGATION ONE (18:09)
[2017-08-28 20:00] VITALS: BP 118/73; PULSE 80; RESP 16; TEMP 98.1; O2SAT 97
[2017-08-28] MEDS: SODIUM CHLORIDE 0.9% FLUSH 10 ML FLUSH IV FLUSH SCH (21:00)
[2017-08-28] MEDS ORDERED: [UNRECOGNIZED DRUG - OTHER] IRRIGATION ONE (22:00)
[2017-08-28] MEDS ORDERED: diphenhydrAMINE HCL 50 MG CAP PO PRN (23:15)
[2017-08-28] MEDS ORDERED: diphenhydrAMINE HCL 50 MG/ML VIAL IV PRN (23:30)
[2017-08-29] VITALS (7 sets, daily range): BP systolic 107–126; BP diastolic 61–79; PULSE 54–114; RESP 16–22; TEMP 96.1–99.9; O2SAT 95–99
[2017-08-29] MEDS: PIPERACIL-TAZO 4.5 GM PREMIX 100 ML IV SCH ×5 (01:42→21:46)
[2017-08-29] MEDS: VANCOMYCIN 1,500 MG/NS 500 ML IV SCH ×4 (02:40→13:30)
[2017-08-29 08:33] LABS: AUTOMATED NEUTROPHIL # 10.3 TH/MM3 (1.8-7.7); HEMATOCRIT 40.3 % (39.0-51.0); HEMO FLAGS DIFF FINAL; LYMPH % 4.4 % (9.0-44.0); LYMPHOCYTE # 0.5 TH/MM3 (1.0-4.8); MEAN CELL VOLUME 95.3 FL (80.0-100.0); MEAN CORPUSCULAR HEMOGLOBIN 32.7 PG (27.0-34.0); MEAN CORPUSCULAR HGB CONC 34.3 % (32.0-36.0); MONO % 7.4 % (0.0-8.0); NEUT % 88.2 % (16.0-70.0); PLATELET COUNT 191 TH/MM3 (150-450); RED BLOOD COUNT 4.23 MIL/MM3 (4.50-5.90); RED CELL DISTRIBUTION WIDTH 13.3 % (11.6-17.2); WHITE BLOOD COUNT 11.6 TH/MM3 (4.0-11.0)
--- NOTE | 2017-08-29 08:41 | MP ---
cc: BALBIR MARTINEZ III, M.D. DATE OF SURGERY 08/28/2017 PREOPERATIVE DIAGNOSIS Left thumb infection and abscess. POSTOPERATIVE DIAGNOSIS Left thumb infection and abscess, superficial necrotizing infection felon. PROCEDURE Incision, debridement/drainage left thumb. SURGEON Balbir Martinez MD PROCEDURE The patient was brought to the operating room, placed supine on the operating table. After the correct site and side of surgery were verified by members of each team in the room multiple times including the patient and myself and after adequate preoperative markings and preoperative written consent were verified by everyone and after adequate preoperative time-out was performed to everyone's satisfaction and after adequate general anesthesia had been achieved, the left upper extremity was prepped and draped in the traditional sterile surgical fashion. On exam, the thumb was found to be fluctuant and had purulent turbid fluid coming from the wound. The superficial epidermis, which had blistered up from the thumb was sharply debrided. There was a ground beef/scalded skin appearance to the dermis underneath 80% of the thumb including the tip of the thumb and the thumb pad. The thumb pad was fluctuant, so a small incision was made and a skin biopsy was taken and passed off the field as a specimen. A small amount of turbid fluid was encountered. There were no other fluctuant areas. There were no other areas of necrotic skin. A thorough irrigation of the thumb using saline was performed and Xeroform was applied all around the thumb to protect the raw skin. The thumb had a very characteristic appearance of pyoderma gangrenosum. A bulky protective dressing was applied. The tourniquet used for four minutes just for the skin biopsy. The patient was awakened from anesthesia and transported to Post Anesthesia Care awake and in stable condition. MD SAMUEL Monteiro III/CAM /6:11 PM /8:38 AM
[2017-08-29] MEDS: CIPROFLOXACIN 500 MG TAB PO SCH ×3 (09:00→21:46)
[2017-08-29] MEDS: SODIUM CHLORIDE 0.9% FLUSH 10 ML FLUSH IV FLUSH SCH ×2 (09:00→21:00)
[2017-08-29 09:01] LABS: BICARBONATE 24.4 MEQ/L (21.0-32.0)
[2017-08-29 09:20] LABS: POTASSIUM 4.1 MEQ/L (3.5-5.1)
[2017-08-29] MEDS: chlordiazePOXIDE 25 MG CAP PO SCH ×3 (09:43→18:44)
[2017-08-29] MEDS: MORPHINE SULFATE 2 MG/ML INJ IV PUSH PRN (11:25)
--- NOTE | 2017-08-29 13:05 | HHI.PR ---
Subjective Remarks pt feels fine; pain controlled Objective Vital Signs Date Time Temp Pulse Resp B/P (MAP) Pulse Ox O2 Delivery O2 Flow Rate FiO2 08/29/17 12:00 96.2 81 18 119/64 (82) 97 08/29/17 08:00 96.3 64 17 124/79 (94) 98 08/29/17 04:58 96.1 54 16 108/68 (81) 99 08/29/17 00:00 96.2 60 16 115/67 (83) 95 08/28/17 20:00 98.1 80 16 118/73 (88) 97 08/28/17 18:45 100.3 98 16 132/78 (96) 98 Nasal Cannula 2 08/28/17 18:30 99 16 139/85 (103) 97 Nasal Cannula 2 08/28/17 18:15 107 16 148/90 (109) 100 Nasal Cannula 3 08/28/17 18:00 100.3 111 16 151/99 (116) 98 Nasal Cannula 3 08/28/17 15:30 101.4 103 19 174/95 (121) 99 08/28/17 15:15 I/O 08/28/17 08/28/17 08/28/17 08/29/17 08/29/17 08/29/17 07:00 15:00 23:00 07:00 15:00 23:00 Intake Total 550 ml 615 ml Output Total 5 ml 600 ml Balance 545 ml 15 ml Intake IV Total 615 ml Other 550 ml Output Urine Total 600 ml Estimated Blood Loss 5 ml # Voids 0 Result Diagram: 08/29/17 0751 08/29/17 0751 Objective Remarks left UE streaking markedly improved, but still slightly present left thumb stable, looks better than i anticipated; viable no fluid collections; able to flex/extend Assessment and Plan Problem List: (1) Cellulitis of thumb, left ICD Codes: L03.012 - Cellulitis of left finger Status: Acute Plan: i suspect this is pyoderma gangrenosum and will defer medical treatment to the internal medicine team ok to shower and local wound care as necessary needs to strictly elevate the left hand Balbir Martinez III, MD Aug 29, 2017 13:05
--- NOTE | 2017-08-29 14:27 | EKG ---
Date Performed: 08/28/2017 Time Performed: 14:38:00 PTAGE: 52 years EKG: SINUS TACHYCARDIA ABNORMAL RHYTHM ECG PREVIOUS TRACING : 04/14/2017 09.51 Compared to prior tracing no significant change DOCTOR: Aravind Osei Interpretating Date/Time 08/29/2017 14:20:25
--- NOTE | 2017-08-29 14:29 | HHI.PR ---
Subjective Remarks Follow-up wounds, some infection. Patient reports pain in his left thumb. Otherwise feels better today. Denies dyspnea, nausea, vomiting. Objective Vitals Vital Signs Date Time Temp Pulse Resp B/P (MAP) Pulse Ox O2 Delivery O2 Flow Rate FiO2 08/29/17 12:00 96.2 81 18 119/64 (82) 97 08/29/17 08:00 96.3 64 17 124/79 (94) 98 08/29/17 04:58 96.1 54 16 108/68 (81) 99 08/29/17 00:00 96.2 60 16 115/67 (83) 95 08/28/17 20:00 98.1 80 16 118/73 (88) 97 08/28/17 18:45 100.3 98 16 132/78 (96) 98 Nasal Cannula 2 08/28/17 18:30 99 16 139/85 (103) 97 Nasal Cannula 2 08/28/17 18:15 107 16 148/90 (109) 100 Nasal Cannula 3 08/28/17 18:00 100.3 111 16 151/99 (116) 98 Nasal Cannula 3 08/28/17 15:30 101.4 103 19 174/95 (121) 99 08/28/17 15:15 I/O 08/28/17 08/28/17 08/28/17 08/29/17 08/29/17 08/29/17 07:00 15:00 23:00 07:00 15:00 23:00 Intake Total 550 ml 615 ml Output Total 5 ml 600 ml Balance 545 ml 15 ml Intake IV Total 615 ml Other 550 ml Output Urine Total 600 ml Estimated Blood Loss 5 ml # Voids 0 Result Diagram: 08/29/17 0751 08/29/17 0751 Objective Remarks General: No acute distress. Heart: Regular rate and rhythm. No murmur. Lungs: Clear to auscultation bilaterally. No wheezes, rales, or rhonchi. Breathing is nonlabored. Abdomen: Soft, nontender, nondistended. Extremities: No lower extremity edema. Multiple wounds on the distal right arm, including one at the wrist and one on the dorsum of the thumb. Left thumb bandaged. Psych: Alert and oriented. Procedures 08/28/17 incision and debridement/drainage of left thumb. A/P Assessment and Plan 1. Left thumb infection: Appreciate hand surgery recommendations. Status post incision and drainage. Continue antibiotics. 2. Possible pyoderma gangrenosum: Skin biopsy pending. Will likely need topical versus systemic steroids. 3. Sepsis: Secondary to above. Patient presented with fever, tachycardia, leukocytosis. Continue antibiotics. 4. Alcohol abuse: Monitor for signs of withdrawal. Seizure precautions. CIWA protocol. 5. DVT prophylaxis: Symone, DONA segura. Discharge Planning Possible discharge home next 1-2 days pending further improvement of infection. Octavio Nieves MD Aug 29, 2017 14:29
[2017-08-30] VITALS: BP 109/65; PULSE 58; RESP 16; TEMP 96.2; O2SAT 98
[2017-08-30] MEDS: PIPERACIL-TAZO 4.5 GM PREMIX 100 ML IV SCH ×4 (01:06→20:31)
[2017-08-30] MEDS: MORPHINE SULFATE 2 MG/ML INJ IV PUSH PRN ×4 (02:16→20:32)
[2017-08-30] MEDS: VANCOMYCIN 1,500 MG/NS 500 ML IV SCH ×4 (02:16→16:02)
[2017-08-30 08:00] VITALS: BP 142/79; PULSE 63; RESP 17; TEMP 96.4; O2SAT 96
[2017-08-30] MEDS: chlordiazePOXIDE 25 MG CAP PO SCH ×3 (08:00→19:31)
[2017-08-30] MEDS: CIPROFLOXACIN 500 MG TAB PO SCH ×2 (08:00→20:31)
[2017-08-30] MEDS: SODIUM CHLORIDE 0.9% FLUSH 10 ML FLUSH IV FLUSH SCH ×2 (08:02→20:32)
[2017-08-30 08:05] LABS: AUTOMATED NEUTROPHIL # 7.5 TH/MM3 (1.8-7.7); BASOPHIL % 0.2 % (0.0-2.0); EOSINOPHIL % 0.2 % (0.0-4.0); HEMATOCRIT 37.4 % (39.0-51.0); HEMO FLAGS DIFF FINAL; LYMPH % 16.4 % (9.0-44.0); LYMPHOCYTE # 1.6 TH/MM3 (1.0-4.8); MEAN CELL VOLUME 96.1 FL (80.0-100.0); MEAN CORPUSCULAR HEMOGLOBIN 33.1 PG (27.0-34.0); MEAN CORPUSCULAR HGB CONC 34.4 % (32.0-36.0); MONO % 6.5 % (0.0-8.0); NEUT % 76.7 % (16.0-70.0); PLATELET COUNT 178 TH/MM3 (150-450); RED BLOOD COUNT 3.89 MIL/MM3 (4.50-5.90); RED CELL DISTRIBUTION WIDTH 13.2 % (11.6-17.2); WHITE BLOOD COUNT 9.7 TH/MM3 (4.0-11.0)
[2017-08-30 08:26] LABS: BICARBONATE 25.6 MEQ/L (21.0-32.0); POTASSIUM 3.5 MEQ/L (3.5-5.1)
--- NOTE | 2017-08-30 11:49 | HHI.PR ---
Subjective Remarks Follow-up left thumb infection, lymphangitis. Patient has redness extending up his left forearm. This is slightly decreased compared to yesterday. He reports that his pain is well controlled. No chest pain, dyspnea, nausea, vomiting. Objective Vitals Vital Signs Date Time Temp Pulse Resp B/P (MAP) Pulse Ox O2 Delivery O2 Flow Rate FiO2 08/30/17 08:00 96.4 63 17 142/79 (100) 96 08/30/17 00:00 96.2 58 16 109/65 (80) 98 08/29/17 22:48 96 08/29/17 20:00 96.7 60 16 107/61 (76) 99 08/29/17 16:00 97.0 74 16 124/76 (92) 97 08/29/17 12:00 96.2 81 18 119/64 (82) 97 I/O 08/29/17 08/29/17 08/29/17 08/30/17 08/30/17 08/30/17 07:00 15:00 23:00 07:00 15:00 23:00 Intake Total 615 ml 2395 ml 900 ml Output Total 600 ml 1000 ml 400 ml Balance 15 ml 1395 ml 500 ml Intake Oral 1680 ml IV Total 615 ml 715 ml 900 ml Output Urine Total 600 ml 1000 ml 400 ml # Bowel Movements 0 Result Diagram: 08/30/17 0710 08/30/17 0710 Objective Remarks General: No acute distress. Heart: Regular rate and rhythm. No murmur. Lungs: Clear to auscultation bilaterally. No wheezes, rales, or rhonchi. Breathing is nonlabored. Abdomen: Soft, nontender, nondistended. Extremities: No lower extremity edema. Multiple wounds on the distal right arm, including one at the wrist and one on the dorsum of the thumb. Left thumb wound surgical wound without surrounding erythema. Psych: Alert and oriented. Procedures 08/28/17 incision and debridement/drainage of left thumb. Urinary Catheter: No Vascular Central Line Catheter: No A/P Assessment and Plan 1. Left thumb infection: Appreciate hand surgery recommendations. Status post incision and drainage. Continue antibiotics. Continue dressing changes. Wound cultures are growing group A beta strep and staph aureus. Further ID pending. 2. Possible pyoderma gangrenosum: Skin biopsy pending. Will likely need topical versus systemic steroids. 3. Sepsis: Secondary to above. Patient presented with fever, tachycardia, leukocytosis. Continue antibiotics. 4. Alcohol abuse: Monitor for signs of withdrawal. Seizure precautions. CIWA protocol ordered. 5. DVT prophylaxis: DONA Ashby. Discharge Planning Possible discharge home next 1-2 days pending further improvement of infection. Octavio Nieves MD Aug 30, 2017 11:49
[2017-08-30 12:00] VITALS: BP 143/75; PULSE 61; RESP 18; TEMP 96.6; O2SAT 95
[2017-08-30] MEDS ORDERED: PHARMACY ORDERED LAB ONE (12:45)
[2017-08-30 16:00] VITALS: BP_SYST 125; BP_SYST 145; BP_DIAS 75; PULSE 66; RESP 17; TEMP 97.5; O2SAT 94
[2017-08-30] MEDS: VANCOMYCIN INJ 1,250 MG in SODIUM CHLOR 0.9% 250 ML INJ 250 ML IV SCH (17:39)
[2017-08-30 21:00] VITALS: BP 169/91; PULSE 72; RESP 18; TEMP 98.1; O2SAT 98
[2017-08-31 00:41] VITALS: BP 148/84; PULSE 72; RESP 18; TEMP 98; O2SAT 99
[2017-08-31] MEDS: PIPERACIL-TAZO 4.5 GM PREMIX 100 ML IV SCH ×4 (01:43→20:18)
[2017-08-31] MEDS: MORPHINE SULFATE 2 MG/ML INJ IV PUSH PRN ×2 (01:44→05:40)
[2017-08-31] MEDS: VANCOMYCIN INJ 1,250 MG in SODIUM CHLOR 0.9% 250 ML INJ 250 ML IV SCH ×2 (02:26→14:24)
[2017-08-31 07:48] VITALS: BP 175/98; PULSE 68; RESP 17; TEMP 98.8; O2SAT 96
[2017-08-31] MEDS: CIPROFLOXACIN 500 MG TAB PO SCH ×2 (08:47→20:17)
[2017-08-31] MEDS: predniSONE 20 MG TAB PO SCH (08:47)
[2017-08-31] MEDS: chlordiazePOXIDE 25 MG CAP PO SCH ×3 (08:47→18:30)
--- NOTE | 2017-08-31 10:35 | HHI.PR ---
Subjective Remarks Follow up wounds. Patient still having pain in left thumb. He reports improvement of the wound of the right forearm. No chest pain, dyspnea. Objective Vitals Vital Signs Date Time Temp Pulse Resp B/P (MAP) Pulse Ox O2 Delivery O2 Flow Rate FiO2 08/31/17 07:48 98.8 68 17 175/98 (123) 96 08/31/17 05:45 20 08/31/17 00:41 98.0 72 18 148/84 (105) 99 08/30/17 21:00 98.1 72 18 169/91 (117) 98 08/30/17 16:00 97.5 66 17 145/75 (98) 94 08/30/17 16:00 97.5 66 17 125/75 (92) 94 08/30/17 12:00 96.6 61 18 143/75 (97) 95 I/O 08/30/17 08/30/17 08/30/17 08/31/17 08/31/17 08/31/17 07:00 15:00 23:00 07:00 15:00 23:00 Intake Total 1400 ml 1630 ml 1342.5 ml 240 ml Output Total 400 ml Balance 1000 ml 1630 ml 1342.5 ml 240 ml Intake Oral 1440 ml 980 ml 240 ml IV Total 1400 ml 190 ml 362.5 ml Output Urine Total 400 ml # Voids 7 3 # Bowel Movements 1 Result Diagram: 08/30/17 0710 08/30/17 0710 Objective Remarks General: No acute distress. Heart: Regular rate and rhythm. No murmur. Lungs: Clear to auscultation bilaterally. No wheezes, rales, or rhonchi. Breathing is nonlabored. Abdomen: Soft, nontender, nondistended. Extremities: No lower extremity edema. Multiple wounds on the distal right arm, including one at the wrist and one on the dorsum of the thumb. Left thumb surgical wound bandaged. Erythema improving. Psych: Alert and oriented. Procedures 08/28/17 incision and debridement/drainage of left thumb. Urinary Catheter: No Vascular Central Line Catheter: No A/P Assessment and Plan 1. Left thumb infection: Appreciate hand surgery recommendations. Status post incision and drainage. Continue antibiotics. Continue dressing changes. Wound cultures are growing group A beta strep and staph aureus. Further ID pending. 2. Possible pyoderma gangrenosum: Skin biopsy report noted. Prednisone daily. 3. Sepsis: Secondary to above. Patient presented with fever, tachycardia, leukocytosis. Continue antibiotics. 4. Alcohol abuse: Monitor for signs of withdrawal. Seizure precautions. [place] protocol ordered. 5. DVT prophylaxis: DONA Ashby. Discharge Planning Possible discharge home tomorrow pending further improvement of infection. Octavio Nieves MD Aug 31, 2017 10:35
[2017-08-31 13:46] VITALS: BP 159/87; PULSE 67; RESP 12; TEMP 97.8; O2SAT 96
[2017-08-31] MEDS: SODIUM CHLORIDE 0.9% FLUSH 10 ML FLUSH IV FLUSH SCH ×2 (14:24→20:19)
[2017-08-31] MEDS: ACETAMINOPHEN/HYDROcodone 325 MG/5 MG TAB PO PRN ×2 (15:05→20:18)
[2017-08-31 16:00] VITALS: BP 174/86; PULSE 59; RESP 19; TEMP 96.9; O2SAT 98
--- NOTE | 2017-08-31 18:28 | HHI.PR ---
Subjective Remarks pt feels fine; pain controlled; thumb feels better, moving more easily Objective Vital Signs Date Time Temp Pulse Resp B/P (MAP) Pulse Ox O2 Delivery O2 Flow Rate FiO2 08/31/17 18:11 20 08/31/17 16:00 96.9 59 19 174/86 (115) 98 08/31/17 13:46 97.8 67 12 159/87 (111) 96 08/31/17 07:48 98.8 68 17 175/98 (123) 96 08/31/17 05:45 20 08/31/17 00:41 98.0 72 18 148/84 (105) 99 08/30/17 21:00 98.1 72 18 169/91 (117) 98 I/O 08/30/17 08/30/17 08/30/17 08/31/17 08/31/17 08/31/17 07:00 15:00 23:00 07:00 15:00 23:00 Intake Total 1400 ml 1630 ml 1342.5 ml 240 ml 1200 ml Output Total 400 ml 800 ml Balance 1000 ml 1630 ml 1342.5 ml 240 ml 400 ml Intake Oral 1440 ml 980 ml 240 ml 1200 ml IV Total 1400 ml 190 ml 362.5 ml Output Urine Total 400 ml 800 ml # Voids 7 3 # Bowel Movements 1 1 Result Diagram: 08/30/17 0710 08/30/17 0710 Objective Remarks left UE streaking resolved left thumb less edema, looks better than i anticipated; viable no fluid collections; able to flex/extend Assessment and Plan Problem List: (1) Cellulitis of thumb, left ICD Codes: L03.012 - Cellulitis of left finger Status: Acute Plan: i suspect this is pyoderma gangrenosum and will defer medical treatment to the internal medicine team ok to shower and local wound care as necessary needs to strictly elevate the left hand Balbir Martinez III, MD Aug 31, 2017 18:28
[2017-08-31 20:00] VITALS: BP 162/87; PULSE 64; RESP 19; TEMP 96.1; O2SAT 99
[2017-09-01] VITALS: BP 174/81; PULSE 61; RESP 19; TEMP 95.9; O2SAT 98
[2017-09-01] MEDS: PIPERACIL-TAZO 4.5 GM PREMIX 100 ML IV SCH ×2 (02:10→08:49)
[2017-09-01] MEDS ORDERED: PHARMACY ORDERED LAB ONE (02:45)
[2017-09-01] MEDS: VANCOMYCIN INJ 1,250 MG in SODIUM CHLOR 0.9% 250 ML INJ 250 ML IV SCH (02:53)
[2017-09-01] MEDS: ACETAMINOPHEN/HYDROcodone 325 MG/5 MG TAB PO PRN ×3 (02:58→14:38)
[2017-09-01 04:00] VITALS: RESP 18
[2017-09-01 07:50] VITALS: BP 192/94; PULSE 54; RESP 13; TEMP 97.8; O2SAT 97
[2017-09-01] MEDS: chlordiazePOXIDE 25 MG CAP PO SCH ×2 (08:49→12:08)
[2017-09-01] MEDS: SODIUM CHLORIDE 0.9% FLUSH 10 ML FLUSH IV FLUSH SCH (08:49)
[2017-09-01] MEDS: predniSONE 20 MG TAB PO SCH (08:49)
[2017-09-01] MEDS: CIPROFLOXACIN 500 MG TAB PO SCH (08:49)
[2017-09-01] MEDS ORDERED: AMOX500C PO (11:19)
[2017-09-01] MEDS ORDERED: BACT800T5 PO (11:19)
[2017-09-01] MEDS ORDERED: PRED5PAK PO (11:19)
--- NOTE | 2017-09-01 11:19 | HHI.DCPOC ---
Discharge Care Plan Diagnosis: (1) Pyoderma gangrenosum (2) Cellulitis of thumb, left (3) Sepsis Goals to Promote Your Health * To prevent worsening of your condition and complications * To maintain your health at the optimal level Directions to Meet Your Goals Take your medications as prescribed Follow your dietary instruction Follow activity as directed Keep your appointments as scheduled Take your immunizations and boosters as scheduled If your symptoms worsen call your PCP, if no PCP go to Urgent Care Center or Emergency Room Smoking is Dangerous to Your Health. Avoid second hand smoke Call the 24-hour hour crisis hotline for domestic abuse at Octavio Nieves MD Sep 01, 2017 11:19
--- NOTE | 2017-09-01 11:22 | HHI.DS ---
Discharge Summary Admission Date Aug 28, 2017 at 13:34 Discharge Date: Sep 01, 2017 Admitting Diagnosis left thumb cellulitis with lymphangitis, sepsis (1) Pyoderma gangrenosum ICD Code: L88 - Pyoderma gangrenosum (2) Cellulitis of thumb, left ICD Code: L03.012 - Cellulitis of left finger Status: Acute (3) Sepsis ICD Code: A41.9 - Sepsis, unspecified organism Status: Acute Procedures 08/28/17 incision and debridement/drainage of left thumb. Brief History - From Admission last monday was cutting tree, and safety harness broke so tried to hang on the palm tree as he was desceding and the palm tree hit several places on his bilateral arm left thumb got the worse and swelling started slowly came yesterday to er, got i+D and got worse now woke up tracking up the left arm fever antibiotics not started because [facility] and was told to come to er since it was lanced here, has been draining not diabetic but a a smoker left UE have 2 plates inside from prior injury - 1986 not on any immunsuppressants denies any other symptoms nausea/ vomtign/ etc CBC/BMP: 08/30/17 0710 09/01/17 0735 Significant Findings Laboratory Tests Test 08/30/17 07:10 08/30/17 13:07 09/01/17 02:30 09/01/17 07:35 Red Blood Count 3.89 MIL/MM3 (4.50-5.90) Hemoglobin 12.9 GM/DL (13.0-17.0) Hematocrit 37.4 % (39.0-51.0) Neutrophils (%) (Auto) 76.7 % (16.0-70.0) Calcium Level 8.4 MG/DL (8.5-10.1) Vancomycin Level Trough 18.7 MCG/ML (5.0-10.0) 14.5 MCG/ML (5.0-10.0) Estimat Glomerular Filtration Rate 87 ML/MIN (>89) PE at Discharge General: No acute distress. Heart: Regular rate and rhythm. No murmur. Lungs: Clear to auscultation bilaterally. No wheezes, rales, or rhonchi. Breathing is nonlabored. Abdomen: Soft, nontender, nondistended. Extremities: No lower extremity edema. Multiple wounds on the distal right arm, including one at the wrist and one on the dorsum of the thumb. Left thumb surgical wound bandaged. Erythema improving. Psych: Alert and oriented. Pt update on day of discharge The patient has no complaints at this time. He wants to go home. He states that his wounds have continued to improve. Hospital Course The patient was admitted for management of cellulitis/abscess of the left thumb. Hand surgery was consulted. Patient had incision and debridement of the left thumb. He also was noted to have wounds on his right forearm and right thumb. These were felt to be consistent with pyoderma gangrenosum. The patient was continued on antibiotics. He was started on prednisone. The wounds continue to improve throughout the hospitalization. He was cleared for discharge by hand surgery. He was advised to follow-up at the is a clinic and that he would possibly need to see rheumatology. Pt Condition on Discharge: Stable Discharge Disposition: Discharge Home Discharge Time: > 30 minutes Discharge Instructions DIET: Follow Instructions for: As Tolerated, No Restrictions Activities you can perform: Regular-No Restrictions Follow up Referrals: Hand Surgery - 1 Week with Balbir Martinez III, MD PCP Follow-up - 2 Weeks New Medications: Amoxicillin (Amoxicillin) 500 Mg Cap 500 MG PO TID for Infection, #21 CAP 0 Refills Prednisone (21) 5 mg tab Dose Pack (Prednisone (21) 5 mg tab Dose Pack) 5 Mg Dspk 5 MG PO DIRECTED for Inflammation, #1 DSPK 0 Refills Continued Medications: Folic Acid (Folic Acid) 1 Mg Tablet 1 MG PO DAILY for VIT, #30 TAB 0 Refills Sulfamethoxazole-Trimethoprim (Bactrim DS) 800-160 Mg Tab 1 TAB PO BID for Infection for 10 Days, #14 TAB 0 Refills (This prescription has been renewed) Thiamine HCl (Gnp Vitamin B-1) 100 Mg Tab 100 MG PO DAILY for VIT, #30 TAB 0 Refills Discontinued Medications: Cephalexin (Keflex) 500 Mg Cap 500 MG PO Q6H for Infection for 10 Days, #40 CAP 0 Refills Clindamycin (Clindamycin) 300 Mg Cap 300 MG PO TID for Infection, #30 CAP 0 Refills Octavio Nieves MD Sep 01, 2017 11:22
[2017-09-01 11:40] VITALS: BP 162/87; PULSE 50; RESP 17; TEMP 97.3; O2SAT 97
[2017-09-01] MEDS: MORPHINE SULFATE 2 MG/ML INJ IV PUSH PRN (12:08)
[2017-09-03] MEDS ORDERED: PHARMACY ORDERED LAB ONE (02:45)
== END 2017-09-01 15:31 | disposition home or self-care (01) | DRG 602 ==
LOC: HOR 11:58 → NEDA 13:34 → N07B 15:03
PROVIDERS: ADMIT Family Medicine; ATTEND Family Medicine
PROC: 0HBGXZZ Excision of Left Hand Skin, External Approach (ICD-10-PCS; principal; 2017-08-28 17:08)
DX: L88 Pyoderma gangrenosum (principal); A41.9 Sepsis, unspecified organism; L03.012 Cellulitis of left finger; I89.1 Lymphangitis; S61.032A Puncture wound without foreign body of left thumb without damage to nail, initial encounter; X58.XXXA Exposure to other specified factors, initial encounter; Y93.H2 Activity, gardening and landscaping; R03.0 Elevated blood-pressure reading, without diagnosis of hypertension; F17.210 Nicotine dependence, cigarettes, uncomplicated; F10.10 Alcohol abuse, uncomplicated
CPT/HCPCS: 80048; 80053; 80202; 82565; 83605; 85025; 86403; 87015; 87040; 87070; 87102; 87116; 87147; 87186; 87205; 87206; 88305; 93005; 96365; 96375; J0131; J1100; J1170; J2175; J2270; J2405; J2543; J3010; J3370; J7030; J7040; J7050; J7512